=== PATIENT | male | born 1975 | race Caucasian/White ===

== ENCOUNTER 2020-04-01 18:29 | Emergency (ER) | payer MEDICARE ==
[~2020-04-01] VITALS: Ht 175.3 cm; Wt 91.0 kg
[2020-04-01] MEDS ORDERED: KETOROLAC 60MG/2ML VIAL IM ONE (19:15)
[2020-04-01] MEDS ORDERED: HYDROCODONE/ACETAMINOPHEN 5/325MG TABLET PO ONE (19:15)
[2020-04-01 20:19] VITALS: BP 132/84
== END 2020-04-01 20:20 | disposition home or self-care (01) ==
LOC: ER 18:29
DX: R10.84 Generalized abdominal pain (principal); M79.10 Myalgia, unspecified site; Z87.828 Personal history of other (healed) physical injury and trauma; Z93.3 Colostomy status; Z98.890 Other specified postprocedural states
CPT/HCPCS: 96372; 99283; J1885

== ENCOUNTER 2020-07-01 14:37 | Emergency (ER) | payer MEDICARE ==
[~2020-07-01] VITALS: Ht 172.7 cm; Wt 73.0 kg
[2020-07-01] MEDS ORDERED: TRAMADOL 50MG TABLET PO ONE (16:15)
[2020-07-01] MEDS ORDERED: KETOROLAC 30MG/ML VIAL IV ONE (16:15)
[2020-07-01] MEDS ORDERED: PIPERACILLIN SODIUM IV SCH (20:00)
[2020-07-01] MEDS ORDERED: WATER IV SCH (20:00)
[2020-07-01] MEDS ORDERED: DEXT 5% IV SCH (20:00)
[2020-07-01] MEDS ORDERED: LEVOFLOXACIN 500MG PREMIX 100 ML IV ONE (20:00)
[2020-07-01] MEDS ORDERED: PIPERACILLIN/TAZ 3.375G PREMIX 50 ML IV SCH (20:30)
[2020-07-01 22:29] VITALS: BP 127/59
== END 2020-07-01 23:09 | disposition home or self-care (01) ==
LOC: ER 14:45
DX: M54.9 Dorsalgia, unspecified (principal); G89.29 Other chronic pain
CPT/HCPCS: 93005; 96365; 96367; 96375; 99285; J1885; J1956; J2543; J7060

== ENCOUNTER 2020-10-19 07:25 | Emergency (ER) | payer MEDICARE ==
[~2020-10-19] VITALS: Ht 180.3 cm; Wt 84.0 kg
[~2020-10-19 07:25] MED LIST: MAGN400T26 MT; MIDO5TAB4 PO
[2020-10-19 07:34] VITALS: BP 127/83
[2020-10-19 09:55] LABS: CLARITY URINE CLEAR (CLEAR); COLOR URINE YELLOW (YELLOW); KETONES URINE NEGATIVE (NEGATIVE); LEUKOCYTE ESTERASE URINE NEGATIVE (NEGATIVE); NITRITE URINE NEGATIVE (NEGATIVE); OCCULT BLOOD URINE NEGATIVE (NEGATIVE); PH URINE 6.5 (4.5-8.0); PROTEIN URINE TRACE (NEGATIVE); SPECIFIC GRAVITY URINE 1.018 (1.005-1.030); UROBILINOGEN URINE 0.2 E.U./dL (0.2-1.0)
[2020-10-19 10:02] LABS: BASOPHILS % 0.7 % (0.0-2.0); EOSINOPHILS % 0.7 % (0.0-5.0); HEMATOCRIT. 35.2 % (42.0-52.0); HEMOGLOBIN. 12.5 g/dL (14.0-18.0); LYMPHOCYTES % 26.4 % (20.0-50.0); MEAN CORPUSCULAR HEMOGLOBIN 29.2 pg (28.0-32.0); MEAN CORPUSCULAR VOLUME 82.4 fL (80.0-94.0); MEAN PLATELET VOLUME 7.3 fl (7.4-10.4); MONOCYTES % 9.8 % (2.0-8.0); NEUTROPHILS % 62.4 % (40.0-76.0); PLATELET 407 x1000/uL (130-400); RED BLOOD CELL COUNT 4.27 mill/uL (4.7-6.1); RED CELL DISTRIBUTION WIDTH 17.3 % (11.6-14.6)
[2020-10-19 10:06] LABS: CHLORIDE 78 mEq/L (98-107)
[2020-10-19 10:08] LABS: INR 1.2
[2020-10-19] MEDS ORDERED: SODIUM CHLORIDE 0.9% 1,000 ML IV ONE (10:15)
== END 2020-10-19 13:04 | disposition left against medical advice (07) ==
LOC: ER 07:33 → CANBEDREQ 16:09
DX: R55 Syncope and collapse (principal); E86.0 Dehydration; N17.9 Acute kidney failure, unspecified; E87.1 Hypo-osmolality and hyponatremia; Z87.828 Personal history of other (healed) physical injury and trauma
CPT/HCPCS: 36415; 80053; 81003; 84484; 85025; 85610; 93005; 99284; J7030